=== PATIENT | male | born 1995 | race Caucasian/White ===

== ENCOUNTER 2021-08-25 07:47 | Emergency (ER) | payer MEDICAID ==
[~2021-08-25] VITALS: Ht 180.3 cm; Wt 63.7 kg
[2021-08-25 07:59] VITALS: BP 113/65
--- NOTE | 2021-08-25 08:02 | NUR ---
PATIENT AMBULATED TO BED 4.
--- NOTE | 2021-08-25 08:03 | NUR ---
25 Y/O M AMBULATED TO BED C/O N/V/D, WITH ABD PAIN 4/10 SINCE 3AM THIS MORNING. VOMITED X2, DIARRHEA X5. DENIES COUGH, FEVER, CHILLS, NO ONE SICK AT HOME. NKDA PMD: BIPOLAR, SCHIZOPHENIA
--- NOTE | 2021-08-25 08:15 | NUR ---
DR PARSONS AT BEDSIDE FOR MSE
[2021-08-25] MEDS: ONDANSETRON 4 MG ODT PO ONE (08:25)
[2021-08-25] MEDS: DIPHENOXYLATE /ATROPINE 2.5 MG TAB PO ONE (08:26)
--- NOTE | 2021-08-25 09:09 | NUR ---
DR PARSONS AT BEDSIDE FOR RE-EVAL.
[2021-08-25] MEDS ORDERED: ATRO1TAB PO (09:12)
[2021-08-25] MEDS ORDERED: ONDA-188 PO (09:12)
[2021-08-25 09:55] VITALS: BP 120/67
--- NOTE | 2021-08-25 09:55 | NUR ---
Patient discharged with v/s stable. Written and verbal after care instructions given and explained. Patient alert, oriented and verbalized understanding of instructions. Ambulatory with steady gait. All questions addressed prior to discharge. ID band removed. Patient advised to follow up with PMD. Rx of DIPHENOXYLATE, ZOFRAN given. Patient educated on indication of medication including possible reaction and side effects. Opportunity to ask questions provided and answered.
== END 2021-08-25 09:55 | disposition home or self-care (01) ==
LOC: MED 07:47
DX: R11.2 Nausea with vomiting, unspecified (principal); R19.7 Diarrhea, unspecified; F31.9 Bipolar disorder, unspecified; F20.9 Schizophrenia, unspecified
CPT/HCPCS: 99283; Q0162